=== PATIENT | female | born 1945 | race Caucasian/White ===

== ENCOUNTER 2017-07-11 22:59 | Inpatient (IN) | payer MEDICARE, BC ==
[~2017-07-11] VITALS: Ht 167.6 cm; Wt 53.2 kg
[~2017-07-11 22:59] MED LIST: ACET-1757 PO; CHOL400C PO; DIVA250T4 PO; FOLI-17 PO; HYDR12.53 PO; IBAN150T PO; LEFL20TA16 PO; LOSA50TA6 PO; OMEG-123 PO; PRED5TAB PO
[2017-07-11] MEDS ORDERED: LOSA1TAB19 PO (23:59)
[2017-07-12 00:58] LABS: BASOPHILS % (AUTO) 1 % (0-1); EOSINOPHILS # (AUTO) 0.06 x10^3/uL (0-0.4); EOSINOPHILS % (AUTO) 1 % (1-7); LYMPHOCYTES # (AUTO) 1.52 x10^3/uL (1-3.4); LYMPHOCYTES % (AUTO) 21 % (22-44); MD NO; MEAN CORPUSCULAR HEMOGLOBIN 29.2 pg (27.0-34.8); MEAN CORPUSCULAR HGB CONC 32.2 g/dL (32.4-35.8); MEAN CORPUSCULAR VOLUME 90.6 fL (80-100); MEAN PLATELET VOLUME 9.8 fL (7.4-10.4); MONOCYTES # (AUTO) 0.85 x10^3/uL (0.2-0.8); MONOCYTES % (AUTO) 12 % (2-9); NEUTROPHILS # (AUTO) 4.66 x10^3/uL (1.8-6.8); NEUTROPHILS % (AUTO) 65 % (42-75); PLATELET COUNT 138 x10^3/uL (130-400); RED BLOOD COUNT 3.92 x10^6/uL (3.82-5.3); RED CELL DISTRIBUTION WIDTH 15.7 % (9.6-15.2)
[2017-07-12] MEDS ORDERED: SODIUM CHLORIDE 0.9% 1,000 ML IV ONE (01:02)
[2017-07-12 01:06] LABS: ALBUMIN 2.8 g/dL (3.4-5.0); ANION GAP 9 mmol/L (5-15); CALCIUM 8.3 mg/dL (8.5-10.1); CHLORIDE 106 mmol/L (98-107); CREATININE 0.36 mg/dL (0.55-1.02)
[2017-07-12] MEDS ORDERED: ONDANSETRON 2MG/ML, 2ML IVPush PRN ×2 (01:30→02:30)
[2017-07-12 01:51] VITALS: BP 119/65
[2017-07-12] MEDS ORDERED: SODIUM CHLORIDE 0.9% 1,000 ML IV SCH (02:05)
[2017-07-12] MEDS ORDERED: hydrALAzine 20 MG/ML, 1ML IVPush PRN (02:30)
[2017-07-12 02:53] LABS: FREE T4 (FREE THYROXINE) 1.23 ng/dL (0.76-1.46); THYROID STIMULATING HORMONE 0.365 mIU/L (0.358-3.740)
[2017-07-12] MEDS: POTASSIUM CHLORIDE 20 MEQ TAB.ER.PRT PO SCH ×2 (03:21→09:33)
[2017-07-12 03:22] VITALS: BP 121/60
[2017-07-12 07:16] VITALS: BP 137/71
[2017-07-12] MEDS: LEFLUNOMIDE 20 MG TABLET PO SCH (09:00)
[2017-07-12 09:21] LABS: MICROSCOPIC NOT IND
[2017-07-12 09:27] LABS: CULTURE INDICATED? NO
[2017-07-12] MEDS: CHOLECALCIFEROL 400 UNITS TABLET PO SCH (09:27)
[2017-07-12] MEDS: DIVALPROEX 250 MG TABLET.DR PO SCH ×2 (09:28→22:27)
[2017-07-12] MEDS: FOLIC ACID 1 MG TABLET PO SCH (09:33)
[2017-07-12 13:00] VITALS: BP 120/68
[2017-07-12 20:22] VITALS: BP 116/65
[2017-07-13 04:00] VITALS: BP 128/66
[2017-07-13 05:23] LABS: ANION GAP 6 mmol/L (5-15); CALCIUM 8.2 mg/dL (8.5-10.1); CHLORIDE 109 mmol/L (98-107); CREATININE 0.37 mg/dL (0.55-1.02)
[2017-07-13] MEDS: ACETAMINOPHEN 325 MG TABLET PO PRN (06:49)
[2017-07-13 08:04] VITALS: BP 127/73
[2017-07-13] MEDS: LEFLUNOMIDE 20 MG TABLET PO SCH (08:49)
[2017-07-13] MEDS: CHOLECALCIFEROL 400 UNITS TABLET PO SCH (08:49)
[2017-07-13] MEDS: FOLIC ACID 1 MG TABLET PO SCH (08:49)
[2017-07-13] MEDS: DIVALPROEX 250 MG TABLET.DR PO SCH ×2 (08:49→20:30)
[2017-07-13 13:32] VITALS: BP 135/73
[2017-07-13 20:13] VITALS: BP 117/72
[2017-07-14 03:06] VITALS: BP 155/75
[2017-07-14 07:06] VITALS: BP 151/82
[2017-07-14] MEDS: CHOLECALCIFEROL 400 UNITS TABLET PO SCH (08:36)
[2017-07-14] MEDS: FOLIC ACID 1 MG TABLET PO SCH (08:36)
[2017-07-14] MEDS: LEFLUNOMIDE 20 MG TABLET PO SCH (08:36)
[2017-07-14] MEDS: DIVALPROEX 250 MG TABLET.DR PO SCH ×2 (08:37→21:09)
[2017-07-14 14:06] VITALS: BP 119/72
[2017-07-14 20:08] VITALS: BP 135/70
[2017-07-15 00:24] VITALS: BP 156/81
[2017-07-15 08:08] VITALS: BP 116/71
[2017-07-15] MEDS: DIVALPROEX 250 MG TABLET.DR PO SCH ×2 (08:21→21:00)
[2017-07-15] MEDS: LEFLUNOMIDE 20 MG TABLET PO SCH (08:21)
[2017-07-15] MEDS: CHOLECALCIFEROL 400 UNITS TABLET PO SCH (08:21)
[2017-07-15] MEDS: FOLIC ACID 1 MG TABLET PO SCH (08:21)
[2017-07-15 11:58] VITALS: BP 114/74
[2017-07-15 14:07] VITALS: BP 124/67
[2017-07-15] MEDS: DOCUSATE 100 MG CAPSULE PO PRN (18:54)
[2017-07-15 20:09] VITALS: BP 121/73
[2017-07-16 02:24] VITALS: BP 157/72
[2017-07-16 07:55] VITALS: BP 132/73
[2017-07-16] MEDS: FOLIC ACID 1 MG TABLET PO SCH (08:42)
[2017-07-16] MEDS: CHOLECALCIFEROL 400 UNITS TABLET PO SCH (08:43)
[2017-07-16] MEDS: LEFLUNOMIDE 20 MG TABLET PO SCH (08:43)
[2017-07-16] MEDS: DIVALPROEX 250 MG TABLET.DR PO SCH ×2 (08:43→21:00)
[2017-07-16 12:54] VITALS: BP 132/67
[2017-07-16 14:17] LABS: BASOPHILS # (AUTO) 0.05 x10^3/uL (0-0.1); BASOPHILS % (AUTO) 1 % (0-1); EOSINOPHILS # (AUTO) 0.01 x10^3/uL (0-0.4); EOSINOPHILS % (AUTO) 0 % (1-7); LYMPHOCYTES # (AUTO) 1.65 x10^3/uL (1-3.4); LYMPHOCYTES % (AUTO) 20 % (22-44); MD NO; MEAN CORPUSCULAR HEMOGLOBIN 29.2 pg (27.0-34.8); MEAN CORPUSCULAR HGB CONC 32.7 g/dL (32.4-35.8); MEAN CORPUSCULAR VOLUME 89.4 fL (80-100); MEAN PLATELET VOLUME 9.6 fL (7.4-10.4); MONOCYTES # (AUTO) 0.88 x10^3/uL (0.2-0.8); MONOCYTES % (AUTO) 10 % (2-9); NEUTROPHILS # (AUTO) 5.87 x10^3/uL (1.8-6.8); NEUTROPHILS % (AUTO) 69 % (42-75); PLATELET COUNT 198 x10^3/uL (130-400); RED BLOOD COUNT 4.13 x10^6/uL (3.82-5.3); RED CELL DISTRIBUTION WIDTH 15.4 % (9.6-15.2)
[2017-07-16 14:30] LABS: ALBUMIN 2.9 g/dL (3.4-5.0); ANION GAP 7 mmol/L (5-15); CALCIUM 9.3 mg/dL (8.5-10.1); CHLORIDE 109 mmol/L (98-107)
[2017-07-16 14:34] LABS: ALANINE AMINOTRANSFERASE 11 U/L (12-78); ALKALINE PHOSPHATASE 51 U/L (45-117); BILIRUBIN,TOTAL 0.4 mg/dL (0.2-1.0); CREATININE 0.66 mg/dL (0.55-1.02); TOTAL PROTEIN 5.9 g/dL (6.4-8.2)
[2017-07-16 20:18] VITALS: BP 127/68
[2017-07-17 02:57] VITALS: BP 151/79
[2017-07-17 07:35] VITALS: BP 112/71
[2017-07-17] MEDS: DIVALPROEX 250 MG TABLET.DR PO SCH ×2 (08:32→21:00)
[2017-07-17] MEDS: FOLIC ACID 1 MG TABLET PO SCH (08:32)
[2017-07-17] MEDS: CHOLECALCIFEROL 400 UNITS TABLET PO SCH (08:32)
[2017-07-17] MEDS: LEFLUNOMIDE 20 MG TABLET PO SCH (08:32)
[2017-07-17] MEDS: DOCUSATE 100 MG CAPSULE PO PRN (08:35)
[2017-07-17] MEDS: NEUTRA PHOS K 250 MG TABLET PO SCH ×3 (12:26→21:52)
[2017-07-17 14:50] VITALS: BP 124/73
[2017-07-17] MEDS ORDERED: methylPREDNISolone SOD SUCC 125 MG/2 ML IV SCH (17:00)
[2017-07-17 19:31] VITALS: BP 120/58
[2017-07-18 01:05] VITALS: BP 123/57
[2017-07-18 05:29] LABS: ALBUMIN 2.7 g/dL (3.4-5.0); ANION GAP 8 mmol/L (5-15); CALCIUM 8.5 mg/dL (8.5-10.1); CHLORIDE 110 mmol/L (98-107)
[2017-07-18 05:32] LABS: ALANINE AMINOTRANSFERASE 8 U/L (12-78); ALKALINE PHOSPHATASE 46 U/L (45-117); BILIRUBIN,TOTAL 0.6 mg/dL (0.2-1.0); CREATININE 0.45 mg/dL (0.55-1.02); TOTAL PROTEIN 5.6 g/dL (6.4-8.2)
[2017-07-18 05:41] LABS: BASOPHILS # (AUTO) 0.02 x10^3/uL (0-0.1); BASOPHILS % (AUTO) 0 % (0-1); EOSINOPHILS % (AUTO) 0 % (1-7); LYMPHOCYTES # (AUTO) 0.81 x10^3/uL (1-3.4); LYMPHOCYTES % (AUTO) 16 % (22-44); MD NO; MEAN CORPUSCULAR HEMOGLOBIN 29.4 pg (27.0-34.8); MEAN CORPUSCULAR HGB CONC 33.1 g/dL (32.4-35.8); MEAN CORPUSCULAR VOLUME 88.8 fL (80-100); MEAN PLATELET VOLUME 9.8 fL (7.4-10.4); MONOCYTES # (AUTO) 0.16 x10^3/uL (0.2-0.8); MONOCYTES % (AUTO) 3 % (2-9); NEUTROPHILS # (AUTO) 3.98 x10^3/uL (1.8-6.8); NEUTROPHILS % (AUTO) 80 % (42-75); PLATELET COUNT 173 x10^3/uL (130-400); RED BLOOD COUNT 3.94 x10^6/uL (3.82-5.3); RED CELL DISTRIBUTION WIDTH 15.6 % (9.6-15.2)
[2017-07-18 06:28] VITALS: BP 128/71
[2017-07-18] MEDS: NEUTRA PHOS K 250 MG TABLET PO SCH ×3 (08:31→19:47)
[2017-07-18] MEDS: LEFLUNOMIDE 20 MG TABLET PO SCH (08:31)
[2017-07-18] MEDS: FOLIC ACID 1 MG TABLET PO SCH (08:31)
[2017-07-18] MEDS: CHOLECALCIFEROL 400 UNITS TABLET PO SCH (08:31)
[2017-07-18] MEDS: DIVALPROEX 250 MG TABLET.DR PO SCH ×2 (08:31→19:47)
[2017-07-18 13:45] VITALS: BP 131/74
[2017-07-18] MEDS: BACITRACIN ZINC OINT 500U/GM, 0.9 GM TP PRN (17:30)
[2017-07-18 19:53] VITALS: BP 138/70
[2017-07-19 03:50] VITALS: BP 132/66
[2017-07-19 07:24] VITALS: BP 149/73
[2017-07-19] MEDS: NEUTRA PHOS K 250 MG TABLET PO SCH ×3 (08:30→21:51)
[2017-07-19] MEDS: DIVALPROEX 250 MG TABLET.DR PO SCH ×2 (08:31→21:51)
[2017-07-19] MEDS: FOLIC ACID 1 MG TABLET PO SCH (08:31)
[2017-07-19] MEDS: LEFLUNOMIDE 20 MG TABLET PO SCH (08:31)
[2017-07-19] MEDS: CHOLECALCIFEROL 400 UNITS TABLET PO SCH (08:31)
[2017-07-19] MEDS: ACETAMINOPHEN 325 MG TABLET PO PRN (08:38)
[2017-07-19 13:37] VITALS: BP 124/78
[2017-07-19] MEDS: BACITRACIN ZINC OINT 500U/GM, 0.9 GM TP PRN (14:31)
[2017-07-19 19:42] VITALS: BP 126/62
[2017-07-20 02:03] VITALS: BP 153/75
[2017-07-20 07:01] VITALS: BP 153/75
[2017-07-20] MEDS ORDERED: PRED20TA PO (07:22)
[2017-07-20] MEDS: DIVALPROEX 250 MG TABLET.DR PO SCH (08:02)
[2017-07-20] MEDS: FOLIC ACID 1 MG TABLET PO SCH (08:02)
[2017-07-20] MEDS: NEUTRA PHOS K 250 MG TABLET PO SCH (08:02)
[2017-07-20] MEDS: CHOLECALCIFEROL 400 UNITS TABLET PO SCH (08:02)
[2017-07-20] MEDS: LEFLUNOMIDE 20 MG TABLET PO SCH (08:02)
[2017-07-20] MEDS: BACITRACIN ZINC OINT 500U/GM, 0.9 GM TP PRN (08:03)
== END 2017-07-20 11:50 | DRG 545 ==
LOC: ED 23:59 → EDIP 07-12 01:02 → 4NOR 07-12 01:46
PROVIDERS: ADMIT Internal Medicine; ATTEND Internal Medicine
DX: M06.9 Rheumatoid arthritis, unspecified (principal); R53.2 Functional quadriplegia; E44.1 Mild protein-calorie malnutrition; R62.7 Adult failure to thrive; R53.1 Weakness; E87.6 Hypokalemia; I10 Essential (primary) hypertension
CPT/HCPCS: 36415; 71045; 80048; 80053; 81003; 82040; 83735; 84100; 84439; 84443; 85025; 86592; 86780; 87040; 93005; 99285; J2930; 92523-GN; J7030; J7512